=== PATIENT | male | born 1980 | race African-American/Black ===

== ENCOUNTER 2017-09-24 13:08 | Emergency (ER) | payer SELFPAY | END 2017-09-24 15:05 | disposition left against medical advice (07) | LOC: D.ER 13:08 | DX: M54.5 Low back pain (principal) ==

== ENCOUNTER 2017-09-25 14:46 | Emergency (ER) | payer SELFPAY | END 2017-09-25 16:20 | disposition home or self-care (01) | LOC: D.ER 14:46 | DX: M54.6 Pain in thoracic spine (principal); M41.9 Scoliosis, unspecified; F17.200 Nicotine dependence, unspecified, uncomplicated ==

== ENCOUNTER 2017-11-09 12:07 | Emergency (ER) | payer MEDICAID | END 2017-11-09 13:28 | disposition home or self-care (01) | LOC: D.ER 12:07 | DX: M54.5 Low back pain (principal); F17.200 Nicotine dependence, unspecified, uncomplicated ==

== ENCOUNTER 2018-01-01 12:08 | Emergency (ER) | payer MEDICAID | END 2018-01-01 12:58 | disposition home or self-care (01) | LOC: D.ER 12:08 | DX: M54.5 Low back pain (principal); M62.838 Other muscle spasm ==

== ENCOUNTER 2018-04-10 09:26 | Emergency (ER) | payer MEDICAID ==
[~2018-04-10] VITALS: Ht 165.1 cm; Wt 56.8 kg
[2018-04-10 09:33] VITALS: Ht 165.1 cm; Wt 56.8 kg
[2018-04-10 09:58] LABS: APPEARANCE CLEAR (CLEAR); BACTERIA FEW /hpf (NONE SEEN); BILIRUBIN NEGATIVE (NEGATIVE); COLOR YELLOW (YELLOW); EPITHELIAL CELLS OCC /hpf (0-5); GLUCOSE NEGATIVE (NEGATIVE); KETONE NEGATIVE (NEGATIVE); MUCUS <1+ /lpf (NONE SEEN); NITRITE NEGATIVE (NEGATIVE); PROTEIN NEGATIVE (NEGATIVE); RED CELLS - URINE 0-5 /hpf (0-5); SPECIFIC GRAVITY 1.005 (1.005-1.020); WHITE CELLS - URINE RARE /hpf (0-5)
[2018-04-10 10:03] LABS: BASOPHILS 0.9 % (0-2); EOSINOPHILS 1.6 % (0-7); HEMATOCRIT 38.8 % (42.0-54.0); HEMOGLOBIN 14.3 g/dL (13.5-17.5); IMMATURE GRANULOCYTES 0.3 % (0-5); LYMPHOCYTES 21.3 % (15-50); MCH 30.7 pg (26.0-34.0); MCHC 36.9 g/dL (31.0-37.0); MCV 83.3 fL (80.0-100.0); MEAN PLATELET VOLUME 9.9 fL (7.4-10.4); MONOCYTES 18.1 % (2-11); NEUTROPHILS 57.8 % (40-80); PLATELET COUNT 120 10x3/uL (130-400); RBC 4.66 10x6/uL (4.20-6.10); RDW 13.7 % (11.5-14.5); WBC 3.2 10x3/uL (4.8-10.8)
[2018-04-10 10:28] LABS: ALBUMIN 3.5 g/dL (3.4-5.0); ANION GAP 12.8 mmol/L (8-16); BILIRUBIN - TOTAL 0.69 mg/dL (0.2-1.3); CALCIUM 8.7 mg/dL (8.5-10.1); CARBON DIOXIDE 30.2 mmol/L (21.0-32.0); CREATININE - SERUM 1.4 mg/dL (0.6-1.3); PROTEIN - SERUM 6.9 g/dL (6.4-8.2)
[2018-04-10] MEDS ORDERED: TAMIFLU75 MG PO (10:41)
[2018-04-10] MEDS ORDERED: VOLTAREN75 MG PO (10:41)
[2018-04-10 11:10] LABS: HIV 1 & 2- RAPID SCREEN NEGATIVE (NEGATIVE)
[2018-04-10 11:42] VITALS: BP 118/078
== END 2018-04-10 11:49 | disposition home or self-care (01) ==
LOC: D.ER 09:26 → EDBD 09:26 → D.ER 11:49
PROVIDERS: Family Medicine
DX: B34.9 Viral infection, unspecified (principal); R09.89 Other specified symptoms and signs involving the circulatory and respiratory systems; F17.200 Nicotine dependence, unspecified, uncomplicated